=== PATIENT | female | born 1980 | race Caucasian/White ===

== ENCOUNTER 2022-10-26 19:36 | Emergency (ER) | payer MEDICAID ==
[~2022-10-26] VITALS: Ht 157.5 cm; Wt 79.4 kg
[2022-10-26 19:42] VITALS: BP 137/96
--- NOTE | 2022-10-26 19:54 | NUR ---
PT TAKEN TO BED 4
--- NOTE | 2022-10-26 19:57 | NUR ---
Patient being evaluated by physician at bedside.
[2022-10-26] MEDS ORDERED: KETOROLAC 60 MG/2 ML VIAL IM ONE (20:00)
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
--- NOTE | 2022-10-26 20:05 | NUR ---
XRAY AT BEDSIDE.
[2022-10-26] MEDS ORDERED: IBUP-2213 PO (20:22)
[2022-10-26 21:18] VITALS: BP 148/79
== END 2022-10-26 21:20 | disposition home or self-care (01) ==
LOC: MED 19:36
DX: S62.665A Nondisplaced fracture of distal phalanx of left ring finger, initial encounter for closed fracture (principal); E07.9 Disorder of thyroid, unspecified; Z79.899 Other long term (current) drug therapy; Z98.890 Other specified postprocedural states; X58.XXXA Exposure to other specified factors, initial encounter; Y93.89 Activity, other specified; Y92.89 Other specified places as the place of occurrence of the external cause; Y99.8 Other external cause status
CPT/HCPCS: 29130; 73140; 96372; 99283; J1885; Q0092